=== PATIENT | male | born 1980 | race Hispanic/Latino ===

== ENCOUNTER 2018-02-02 11:30 | Emergency (ER) | payer OTHER ==
[~2018-02-02 11:30] MED LIST: ARIP20TA PO; DIVA500T69 PO; FLUO20CA30 PO; HYDR-2132 PO; HYDR25CA PO
[2018-02-02] MEDS ORDERED: TETANUS/DIPHTHERIA TOXOID [ADULT] 0.5 ML VIAL IM ONE (12:26)
== END 2018-02-02 14:00 | disposition home or self-care (01) ==
LOC: EDH 11:30
DX: S67.21XA Crushing injury of right hand, initial encounter (principal); Z98.890 Other specified postprocedural states; W22.8XXA Striking against or struck by other objects, initial encounter; Y93.89 Activity, other specified; Y92.009 Unspecified place in unspecified non-institutional (private) residence as the place of occurrence of the external cause; Y99.8 Other external cause status
CPT/HCPCS: 73130; 90471; 90714